=== PATIENT | male | born 1990 | race Hispanic/Latino ===

== ENCOUNTER 2019-05-30 11:04 | Emergency (ER) | payer OTHER, SELFPAY | END 2019-05-30 12:39 | disposition home or self-care (01) | LOC: EDH 11:04 | DX: G51.0 Bell's palsy (principal) ==

== ENCOUNTER 2021-04-11 16:29 | Emergency (ER) | payer OTHER ==
[2021-04-11 16:34] VITALS: BP 178/97
[2021-04-11] MEDS ORDERED: LIDOCAINE HCL 2% VISCOUS 15 ML UDCUP PO ONE (16:45)
[2021-04-11] MEDS ORDERED: FAMOTIDINE 20MG VIAL IV ONE ×2 (16:45→17:07)
[2021-04-11] MEDS ORDERED: MAG/ALUM/SIMETH 30 ML UDCUP ONE (17:07)
[2021-04-11] MEDS ORDERED: LIDOCAINE HCL 2% VISCOUS 15 ML UDCUP ONE (17:07)
[2021-04-11 17:09] LABS: APPEARANCE,URINE Clear (CLEAR); BILIRUBIN,URINE Negative (NEGATIVE); COLOR,URINE Yellow (YELLOW); GLUCOSE, URINE (UA) >=1000 mg/dL (NEGATIVE); KETONES,URINE Trace mg/dL (NEGATIVE); LEUKOCYTE ESTERASE ,URINE Negative (NEGATIVE); NITRATE,URINE Negative (NEGATIVE); OCCULT BLOOD,URINE Small (NEGATIVE); PROTEIN,URINE 300 mg/dL (NEGATIVE)
[2021-04-11 17:11] LABS: BASOPHILS % (AUTO) 1.3 % (0.0-5.0); EOSINOPHILS % (AUTO) 2.2 % (0.0-8.0); LYMPHOCYTES % (AUTO) 28.3 % (21.0-51.0); MEAN CORPUSCULAR HEMOGLOBIN 27.3 pg (27.0-33.0); MEAN CORPUSCULAR HGB CONC 33.8 g/dL (32.0-36.0); MEAN CORPUSCULAR VOLUME 80.8 fL (79-99); MONOCYTES % (AUTO) 4.9 % (3.0-13.0); NEUTROPHILS % (AUTO) 62.6 % (40.0-77.0); PLATELET COUNT (AUTO) 280 K/uL (130-400); RED BLOOD CELL COUNT(AUTO) 5.57 MIL/uL (4.50-6.20); RED CELL DISTRIBUTION WIDTH 13.8 % (11.0-15.5); WHITE BLOOD COUNT (AUTO) 10.7 K/uL (4.8-10.8)
[2021-04-11 17:24] LABS: CREATININE 0.7 mg/dL (0.5-1.5); POTASSIUM 3.8 mmol/L (3.5-5.1)
[2021-04-11 17:28] LABS: ALBUMIN 3.2 g/dL (3.5-5.0); BILIRUBIN,TOTAL 0.6 mg/dL (0.2-1.0)
[2021-04-11 17:29] LABS: BACTERIA,URINE Rare /HPF (None Seen); RBC,URINE 0-1 /HPF (0-1); SQUAMOUS EPITHELIAL CELL,UR Few /HPF (0-2); WBC,URINE None Seen /HPF (0-1); YEAST,URINE BUDDING Few /HPF (None Seen)
[2021-04-11] MEDS ORDERED: FLUCONAZOLE 100 MG TAB PO ONE (18:00)
[2021-04-11 18:14] VITALS: BP 172/88
[2021-04-11] MEDS ORDERED: INSULIN HUMULIN R 100 UNIT/ML 3ML IV STA (18:32)
[2021-04-11] MEDS ORDERED: INSULIN HUMULIN R 100 UNIT/ML 3ML ONE (18:33)
[2021-04-11] MEDS ORDERED: NACL 0.9% 1000ML 1,000 ML IV ONE (18:45)
[2021-04-11] MEDS ORDERED: FAMO-136 PO (19:08)
[2021-04-11] MEDS ORDERED: METF-444 PO (19:08)
[2021-04-11] MEDS ORDERED: FLUC100T PO (19:08)
== END 2021-04-11 19:57 | disposition home or self-care (01) ==
LOC: EDH 16:29
DX: K29.70 Gastritis, unspecified, without bleeding (principal); B37.9 Candidiasis, unspecified; E11.9 Type 2 diabetes mellitus without complications; E66.9 Obesity, unspecified; Z79.4 Long term (current) use of insulin
CPT/HCPCS: 36415; 76705; 80053; 81001; 83690; 84484; 85025; 96361; 96374; 96375; 99284; J1815; J3490; J7030